=== PATIENT | male | born 1980 | race Hispanic/Latino ===

== ENCOUNTER 2022-05-03 21:04 | Emergency (ER) | payer SELFPAY ==
[2022-05-03] MEDS ORDERED: MAGNES/ALUMIN/SIMET 30ML UCUP ONE (21:55)
[2022-05-03] MEDS ORDERED: FAMOTIDINE 20 MG/2 ML VIAL IV ONE (21:55)
[2022-05-03] MEDS ORDERED: LIDOCAINE VISCOUS 2% SOLN 15 ML UDC ONE (21:55)
[2022-05-03] MEDS ORDERED: DICYCLOMINE HCL 20 MG/2 ML AMP IM ONE (21:55)
[2022-05-03 22:18] LABS: Urine Blood Negative (Negative); Urine Glucose Trace (Negative); Urine Protein Negative (Negative); Urine Specific Gravity >=1.030 (1.005-1.030)
[2022-05-03 22:27] LABS: Absolute Lymphocytes (CBC) 2.1 K/uL (0.7-4.9)
[2022-05-03 22:29] LABS: Hematocrit 47.7 % (39.6-49.0); Lymphocytes % 14.6 % (15.3-44.8); MCV 89.3 fL (80-100); MPV 8.8 fL (7.6-11.3); RBC Red Blood Cell Count 5.34 M/uL (4.33-5.43)
[2022-05-03 22:36] LABS: Albumin 3.8 g/dL (3.4-5.0); Bilirubin Total 0.4 mg/dL (0.2-1.0); Potassium 3.9 mmol/L (3.5-5.1); Protein, Total 7.4 g/dL (6.4-8.2)
[2022-05-03] MEDS ORDERED: ONDANSETRON 4 MG/2 ML VIAL ONE (22:38)
[2022-05-03] MEDS ORDERED: MORPHINE 4 MG/ML SYR ONE (22:38)
[2022-05-03 23:14] LABS: Calcium Oxalate Crystals- Ur Few /HPF (None Seen); Specific Gravity 1.025 (1.005-1.030); Urine Bilirubin NEGATIVE (Negative); Urine Blood Negative (Negative); Urine Clarity Clear (Clear); Urine Color Light-Yellow (Yellow); Urine Glucose 2+ (Negative); Urine Mucus Slight /HPF (None Seen); Urine Protein NEGATIVE (Negative); Urine Urobilinogen Normal (Normal)
--- NOTE | 2022-05-03 23:17 | RAD REPORT ---
EXAM DESCRIPTION: CT - Abdomen Pelvis W Contrast - 05/03/2022 10:55 pm CLINICAL HISTORY: Epigastric pain COMPARISON: No comparisons TECHNIQUE: Biphasic, helical CT imaging of the abdomen and pelvis was performed following 100 ml non -ionic IV contrast. Oral contrast: No. All CT scans are performed using dose optimization technique as appropriate and may include automated exposure control or mA/KV adjustment according to patient size. FINDINGS: No suspicious findings in the lung bases. Diffuse fatty infiltration pattern in liver. No focal liver lesion. Spleen and pancreas show no suspi cious findings. Gallbladder is contracted. No biliary tree dilatation. Symmetric renal function is seen with no hydronephrosis or suspicious renal mass. No pyelonephritis o r acute parenchymal process. No bladder abnormalities. No adrenal abnormalities. No gastric abnormality seen. Duodenum is normal. A few prominent proximal small bowel loops are prese nt, nonspecific but possibly enteritis. Patient has very pronounced circumferential wall thickening a nd edema of the terminal ileum with the distal 8-10 cm of the small bowel involved. No appendicitis. Cecum does not appear to be involved. No acute colon process. No free air, free fluid or pneumatosis. Small mesenteric lymph nodes are present. No extraluminal b owel content. No hernia, mass or bulky lymphadenopathy. No suspicious bony findings. IMPRESSION: Prominent ileitis pattern including the terminal ileum. Correlation is needed with any h istory of Crohn's disease or other inflammatory bowel history. Several loops of proximal jejunum are prominent. This is a nonspecific finding could be part of ente ritis. Fatty infiltration of the liver.
--- NOTE | 2022-05-03 23:58 | ER ---
Nurse's Notes [facility] Name: Ashvin Altamirano Age: 41 yrs Sex: Male : 1980 Arrival Date: 05/03/2022 Time: 21:09 Bed 28 Private MD: Diagnosis: Abdominal pain, Generalized Presentation: 05/03 21:22 Chief complaint: Patient states: Mid epigastric pain radiates down middle of abdomen - ld1 pain began yesterday evening. Coronavirus screen: At this time, the client does not indicate any symptoms associated with coronavirus-19. Ebola Screen: No symptoms or risks identified at this time. Initial Sepsis Screen: Does the patient meet any 2 criteria? No. Patient's initial sepsis screen is negative. Does the patient have a suspected source of infection? No. Patient's initial sepsis screen is negative. Risk Assessment: Do you want to hurt yourself or someone else? Patient reports no desire to harm self or others. Onset of symptoms was May 03, 2022. 21:22 Method Of Arrival: Ambulatory ld1 21:22 Acuity: LUIS ALBERTO 3 ld1 Triage Assessment: 21:24 General: Appears in no apparent distress. uncomfortable, Behavior is calm, cooperative, ld1 appropriate for age. Pain: Complains of pain in epigastric area Pain radiates to umbilical area and suprapubic area Pain currently is 9 out of 10 on a pain scale. Quality of pain is described as sharp, shooting, throbbing. EENT: No signs and/or symptoms were reported regarding the EENT system. Neuro: Level of Consciousness is awake, alert, obeys commands, Oriented to person, place, time, situation, Appropriate for age. Cardiovascular: Capillary refill < 3 seconds Patient's skin is warm and dry. Respiratory: Airway is patent Respiratory effort is even, unlabored. GI: Abdomen is round distended. : No signs and/or symptoms were reported regarding the genitourinary system. Derm: No signs and/or symptoms reported regarding the dermatologic system. Musculoskeletal: No signs and/or symptoms reported regarding the musculoskeletal system. Historical: - Allergies: 21:24 No Known Allergies; ld1 - Home Meds: 21:24 lisinopril 2.5 mg Oral tab 1 tab once daily [Active]; ld1 - PMHx: 21:24 Hypertensive disorder; ld1 - PSHx: 21:24 None; ld1 - Immunization history:: Adult Immunizations up to date, Client reports receiving the 2nd dose of the Covid vaccine. - Social history:: Smoking status: Patient reports the use of cigarette tobacco products, smokes one pack cigarettes per day. Patient uses alcohol, 1 bottle of tequila and 5 beer daily.. - Family history:: not pertinent. Screenin:31 Abuse screen: Denies threats or abuse. Nutritional screening: No deficits noted. em6 Tuberculosis screening: No symptoms or risk factors identified. 22:30 Fall Risk None identified. eh3 Assessment: 21:28 General: Appears uncomfortable, Behavior is cooperative. Pain: Complains of pain in em6 suprapubic area and umbilical area and abdomen and epigastric area Pain at worst was 10 out of 10 on a pain scale. Quality of pain is described as radiating, sharp, Pain began 1 day ago. Is continuous. Neuro: Level of Consciousness is awake, alert, obeys commands, Oriented to person, place, time, situation, Denies headache. Cardiovascular: Denies chest pain, Heart tones present Patient's skin is warm and dry. Respiratory: Airway is patent Respiratory effort is even, unlabored, Respiratory pattern is regular, symmetrical. GI: Abdomen is distended, Bowel sounds present X 4 quads. Abdomen is tender to palpation Reports diarrhea, nausea, vomiting. : No signs and/or symptoms were reported regarding the genitourinary system. EENT: No signs and/or symptoms were reported regarding the EENT system. Derm: No signs and/or symptoms reported regarding the dermatologic system. Musculoskeletal: Circulation, motion, and sensation intact. Range of motion: intact in all extremities. 22:30 Reassessment: Pt in CT at this time. eh3 23:00 Reassessment: Patient and/or family updated on plan of care and expected duration. Pain eh3 level reassessed. Patient is alert, oriented x 3, equal unlabored respirations, skin warm/dry/pink. 23:58 Reassessment: Patient and/or family updated on plan of care and expected duration. Pain eh3 level reassessed. Patient is alert, oriented x 3, equal unlabored respirations, skin warm/dry/pink. Vital Signs: 21:22 BP 191 / 103; Pulse 84; Resp 18; Temp 98.6(O); Pulse Ox 99% on R/A; Weight 113.4 kg; ld1 Height 6 ft. 0 in. (182.88 cm); Pain 9/10; 21:30 BP 162 / 104; Pulse 79; Resp 18; Pulse Ox 98% on R/A; em6 23:00 BP 163 / 75; Pulse 70; Resp 16; Pulse Ox 99% on R/A; eh3 23:58 BP 168 / 103; Pulse 73; Resp 16; Pulse Ox 99% on R/A; eh3 21:22 Body Mass Index 33.91 (113.40 kg, 182.88 cm) ld1 ED Course: 21:09 Patient arrived in ED. ja2 21:17 Sanya Aguirre MD is Attending Physician. rt 21:19 Shalini Barrios, RN is Primary Nurse. em6 21:24 Triage completed. ld1 21:24 Arm band placed on right wrist. ld1 21:31 Bed in low position. Call light in reach. Side rails up X 1. Pulse ox on. NIBP on. Warm em6 blanket given. 21:56 Inserted saline lock: 20 gauge in right antecubital area, using aseptic technique. em6 Blood collected. 22:18 CBC with Diff Sent. em6 22:18 CMP Sent. em6 22:18 Lipase Sent. em6 22:45 Report given to telly ROBERTSON. em6 22:56 CT Abd/Pelvis - IV Contrast Only In Process Unspecified. EDMS 23:56 Aditya Wiley MD is Referral Physician. rt 05/04 00:03 No provider procedures requiring assistance completed. IV discontinued, intact, eh3 bleeding controlled, No redness/swelling at site. Pressure dressing applied. Administered Medications: 05/03 21:56 Drug: Pepcid (famotidine) 20 mg Route: IVP; Site: right antecubital; em6 22:19 Follow up: Response: No adverse reaction em6 21:56 Drug: GI Cocktail without - (Maalox Suspension 30 ml, Lidocaine Liquid 2 % 15 em6 ml) Route: PO; 22:19 Follow up: Response: No adverse reaction em6 21:56 Drug: Bentyl (dicyclomine) 20 mg Route: IM; Site: left deltoid; em6 22:18 Follow up: Response: No adverse reaction em6 22:43 Drug: morphine 4 mg Route: IVP; Infused Over: 4 mins; Site: right antecubital; em6 23:00 Follow up: Response: Pain is decreased eh3 22:43 Drug: Zofran (Ondansetron) 4 mg Route: IVP; Site: right antecubital; em6 23:00 Follow up: Response: Nausea is decreased eh3 05/04 00:05 Drug: MethylPrednisoLONE 125 mg Route: IVP; Site: right antecubital; eh3 00:18 Follow up: Response: No adverse reaction eh3 Medication: 00:03 VIS not applicable for this client. eh3 Outcome: 05/03 23:57 Discharge ordered by . rt 05/04 00:03 Discharged to home ambulatory, with family. eh3 Condition: stable Discharge instructions given to patient, family, Instructed on discharge instructions, follow up and referral plans. medication usage, Demonstrated understanding of instructions, follow-up care, medications, Prescriptions given X 3. 00:15 Patient left the ED. eh3 Signatures: Dispatcher [employer] EDMS Rona Jain RN RN ld1 Shantel Walden Erin, RN RN eh3 Shalini Barrios RN RN em6 Sanya Aguirre MD MD rt Corrections: (The following items were deleted from the chart) 05/03 22:52 22:18 URINALYSIS+U.LAB.BRZ drawn and sent. 6 EDPA 22:52 22:18 UA MICROSCOPIC+U.LAB.BRZ drawn and sent. 6 EDMS 23:18 22:30 Reassessment: Patient and/or family updated on plan of care and expected eh3 duration. Pain level reassessed. Patient is alert, oriented x 3, equal unlabored respirations, skin warm/dry/pink. eh3
--- NOTE | 2022-05-03 23:58 | EDPHYS ---
Physician Documentation [facility] Name: Ashvin Altamirano Age: 41 yrs Sex: Male : 1980 Arrival Date: 05/03/2022 Time: 21:09 Bed 28 Private MD: LONNIE Physician Sanya Aguirre HPI: 05/03 22:06 This 41 yrs old Male presents to ER via Ambulatory with complaints of Abdominal Pain, rt Diarrhea. 22:06 Onset: The symptoms/episode began/occurred this morning. The symptoms are aggravated by rt nothing. The symptoms are alleviated by nothing. Associated signs and symptoms: The patient has no apparent associated signs or symptoms. Severity of symptoms: At their worst the symptoms were moderate. Presents to the ED with epigastric pain, described as aching nature radiating to the lower abdomen. This started this morning. Denies other aggravating or alleviating factors. Reports nausea with vomiting, no hematemesis. Of note, the patient reportedly drinks a large amount of alcohol. Denies other acute complaints at this time, symptoms are moderate in severity, no other aggravating or alleviating factors.. Historical: - Allergies: 21:24 No Known Allergies; ld1 - Home Meds: 21:24 lisinopril 2.5 mg Oral tab 1 tab once daily [Active]; ld1 - PMHx: 21:24 Hypertensive disorder; ld1 - PSHx: 21:24 None; ld1 - Immunization history:: Adult Immunizations up to date, Client reports receiving the 2nd dose of the Covid vaccine. - Social history:: Smoking status: Patient reports the use of cigarette tobacco products, smokes one pack cigarettes per day. Patient uses alcohol, 1 bottle of tequila and 5 beer daily.. - Family history:: not pertinent. ROS: 22:06 Constitutional: Negative for fever, chills, and weight loss, Eyes: Negative for injury, rt pain, redness, and discharge, ENT: Negative for injury, pain, and discharge, Neck: Negative for injury, pain, and swelling, Cardiovascular: Negative for chest pain, palpitations, and edema, Respiratory: Negative for shortness of breath, cough, wheezing, and pleuritic chest pain, : Negative for injury, bleeding, discharge, and swelling, MS/Extremity: Negative for injury and deformity, Skin: Negative for injury, rash, and discoloration, Neuro: Negative for headache, weakness, numbness, tingling, and seizure, Psych: Negative for depression, anxiety, suicide ideation, homicidal ideation, and hallucinations. 22:06 Abdomen/GI: Positive for abdominal pain, nausea and vomiting. Exam: 22:06 Constitutional: This is a well developed, well nourished patient who is awake, alert, rt and in no acute distress. Head/Face: Normocephalic, atraumatic. Eyes: Pupils equal round and reactive to light, extra-ocular motions intact. Lids and lashes normal. Conjunctiva and sclera are non-icteric and not injected. Cornea within normal limits. Periorbital areas with no swelling, redness, or edema. ENT: Nares patent. No nasal discharge, no septal abnormalities noted. Tympanic membranes are normal and external auditory canals are clear. Oropharynx with no redness, swelling, or masses, exudates, or evidence of obstruction, uvula midline. Mucous membranes moist. Neck: Trachea midline, no thyromegaly or masses palpated, and no cervical lymphadenopathy. Supple, full range of motion without nuchal rigidity, or vertebral point tenderness. No Meningismus. Chest/axilla: Normal chest wall appearance and motion. Nontender with no deformity. No lesions are appreciated. Cardiovascular: Regular rate and rhythm with a normal S1 and S2. No gallops, murmurs, or rubs. Normal PMI, no JVD. No pulse deficits. Respiratory: Lungs have equal breath sounds bilaterally, clear to auscultation and percussion. No rales, rhonchi or wheezes noted. No increased work of breathing, no retractions or nasal flaring. Skin: Warm, dry with normal turgor. Normal color with no rashes, no lesions, and no evidence of cellulitis. MS/ Extremity: Pulses equal, no cyanosis. Neurovascular intact. Full, normal range of motion. Neuro: Awake and alert, GCS 15, oriented to person, place, time, and situation. Cranial nerves II-XII grossly intact. Motor strength 5/5 in all extremities. Sensory grossly intact. Cerebellar exam normal. Normal gait. Psych: Awake, alert, with orientation to person, place and time. Behavior, mood, and affect are within normal limits. 22:06 Abdomen/GI: Epigastric tenderness without rebound, guarding, abdominal distention. Vital Signs: 21:22 BP 191 / 103; Pulse 84; Resp 18; Temp 98.6(O); Pulse Ox 99% on R/A; Weight 113.4 kg; ld1 Height 6 ft. 0 in. (182.88 cm); Pain 9/10; 21:30 BP 162 / 104; Pulse 79; Resp 18; Pulse Ox 98% on R/A; em6 23:00 BP 163 / 75; Pulse 70; Resp 16; Pulse Ox 99% on R/A; eh3 23:58 BP 168 / 103; Pulse 73; Resp 16; Pulse Ox 99% on R/A; eh3 21:22 Body Mass Index 33.91 (113.40 kg, 182.88 cm) ld1 MDM: 21:21 Patient medically screened. rt 05/04 00:31 Differential diagnosis: gastritis, cholecystitis, pancreatitis, appendicitis, rt gastroenteritis. Data reviewed: vital signs, nurses notes, lab test result(s), EKG, radiologic studies, CT scan. Response to treatment: the patient's symptoms have markedly improved after treatment. ED course: Patient presents to the ED with abdominal pain. Labs reveal mild leukocytosis, vital signs otherwise stable. The patient is found to have likely terminal ileitis, concern for Crohn's. There is no hematochezia, evidence of obstruction. He is otherwise well-appearing with stable vital signs. His symptoms have significantly improved with pain medications in the ED. We will start patient on steroids, he was instructed to follow-up with gastroenterology as an outpatient for further evaluation of inflammatory bowel disease. I see no complications associated with laboratory values at this point, however, try the patient to return if he develops worsening symptoms for recheck.. 05/03 21:43 Order name: CBC with Diff; Complete Time: 22:36 rt 05/03 21:43 Order name: CMP; Complete Time: 23:21 rt 05/03 21:43 Order name: Lipase; Complete Time: 23:21 rt 05/03 22:18 Order name: Urine Dipstick-Ancillary; Complete Time: 22:36 EDMS 05/03 21:43 Order name: CT Abd/Pelvis - IV Contrast Only; Complete Time: 23:21 rt 05/03 22:52 Order name: Urinalysis W/Microscopic; Complete Time: 23:21 EDMS 05/03 21:43 Order name: IV Saline Lock; Complete Time: 22:18 rt 05/03 21:43 Order name: Labs collected and sent; Complete Time: 22:18 rt Administered Medications: 05/03 21:56 Drug: Pepcid (famotidine) 20 mg Route: IVP; Site: right antecubital; em6 22:19 Follow up: Response: No adverse reaction em6 21:56 Drug: GI Cocktail without - (Maalox Suspension 30 ml, Lidocaine Liquid 2 % 15 em6 ml) Route: PO; 22:19 Follow up: Response: No adverse reaction em6 21:56 Drug: Bentyl (dicyclomine) 20 mg Route: IM; Site: left deltoid; em6 22:18 Follow up: Response: No adverse reaction em6 22:43 Drug: morphine 4 mg Route: IVP; Infused Over: 4 mins; Site: right antecubital; em6 23:00 Follow up: Response: Pain is decreased eh3 22:43 Drug: Zofran (Ondansetron) 4 mg Route: IVP; Site: right antecubital; em6 23:00 Follow up: Response: Nausea is decreased eh3 05/04 00:05 Drug: MethylPrednisoLONE 125 mg Route: IVP; Site: right antecubital; eh3 00:18 Follow up: Response: No adverse reaction eh3 Disposition Summary: 05/03/22 23:57 Discharge Ordered Location: Home rt Problem: new rt Symptoms: have improved rt Condition: Stable rt Diagnosis - Abdominal pain, Generalized rt Followup: rt - With: Aditya Wiley MD - When: 5 - 6 days - Reason: Discharge Instructions: - Discharge Summary Sheet rt - Abdominal Pain, Adult rt Forms: - Work release form eh3 - Medication Reconciliation Form rt - Thank You Letter rt - Antibiotic Education rt - Prescription Opioid Use rt - Family Work Release 3 Prescriptions: - Prednisone 20 mg Oral Tablet - take 2 tablets by ORAL route once daily for 5 days; 10 tablet; Refills: 0, rt Product Selection Permitted - Zofran 4 mg Oral Tablet - take 1 tablet by ORAL route every 6 hours; 15 tablet; Refills: 0, Product rt Selection Permitted - Tylenol-Codeine #3 300 mg-30 mg Oral - take 1 tablet by ORAL route every 6 hours; 15 tablet; Refills: 0, Product rt Selection Permitted Signatures: Dispatcher [employer] EDMS Rona Jain, RN RN ld1 Vinita Starr, RN RN eh3 Shalini Barrios, RN RN em6 Sanya Aguirre MD MD rt Corrections: (The following items were deleted from the chart) 05/03 22:52 21:44 URINALYSIS+U.LAB.BRZ ordered. EDMS EDMS 22:52 21:44 UA MICROSCOPIC+U.LAB.BRZ ordered. EDMS EDMS
[2022-05-04] MEDS ORDERED: METHYLPREDNISOLONE 125 MG INJ ONE (00:07)
[2022-05-04 00:45] VITALS: BP 168/103; TEMP 98.6; O2SAT 99
== END 2022-05-04 00:15 | disposition home or self-care (01) ==
LOC: ER 21:04
DX: R10.84 Generalized abdominal pain (principal); I10 Essential (primary) hypertension; F17.210 Nicotine dependence, cigarettes, uncomplicated
CPT/HCPCS: 36415; 74177; 80053; 81001; 81003; 83690; 85025; 96372; 96374; 96375; 99284; J0500; J2405; J2930; Q9967